=== PATIENT | male | born 1965 | race African-American/Black ===

== ENCOUNTER 2020-01-27 17:14 | Inpatient (IN) | payer MEDICAID ==
[~2020-01-27] VITALS: Ht 180.3 cm; Wt 102.9 kg
[2020-01-27 18:57] LABS: BASOPHILS # (AUTO) 0.04 x10^3/uL (0-0.1); BASOPHILS % (AUTO) 0 % (0-1); EOSINOPHILS # (AUTO) 0.11 x10^3/uL (0-0.4); EOSINOPHILS % (AUTO) 1 % (1-7); LYMPHOCYTES # (AUTO) 0.82 x10^3/uL (1-3.4); LYMPHOCYTES % (AUTO) 7 % (22-44); MD NO; MEAN CORPUSCULAR HEMOGLOBIN 29.8 pg (27.5-34.5); MEAN CORPUSCULAR HGB CONC 32.6 g/dL (33.2-36.2); MEAN CORPUSCULAR VOLUME 91.5 fL (81-97); MEAN PLATELET VOLUME 7.1 fL (7.4-10.4); MONOCYTES # (AUTO) 1.17 x10^3/uL (0.2-0.8); MONOCYTES % (AUTO) 10 % (2-9); NEUTROPHILS # (AUTO) 9.95 x10^3/uL (1.8-6.8); NEUTROPHILS % (AUTO) 82 % (42-75); PLATELET COUNT 281 x10^3/uL (130-400); RED BLOOD COUNT 4.01 x10^6/uL (4.38-5.82); RED CELL DISTRIBUTION WIDTH 15.9 % (9.4-14.8)
--- NOTE | 2020-01-27 18:59 | NUR ---
Patient brought in by EMS. Patient alert, oriented, answers questions clearly and concisely. Patient has distended abdomen. Orders placed by provider for computed tomography scan with contrast, RN to bedside, volleyball player already at bedside completing laboratory draw. RN initiated peripheral intravenous access per protocol. Awaiting imaging.
[2020-01-27] MEDS ORDERED: SODIUM CHLORIDE FLUSH 10ML SYR IVF ONE (19:00)
[2020-01-27 19:05] LABS: ALANINE AMINOTRANSFERASE 35 U/L (12-78); ALBUMIN 2.6 g/dL (3.4-5.0); ANION GAP 6 mmol/L (5-15); CALCIUM 9.1 mg/dL (8.5-10.1); CHLORIDE 96 mmol/L (98-107); CREATININE 1.11 mg/dL (0.7-1.3)
[2020-01-27 19:07] LABS: ALKALINE PHOSPHATASE 187 U/L (45-117); BILIRUBIN,TOTAL 0.7 mg/dL (0.2-1.0); TOTAL PROTEIN 8.8 g/dL (6.4-8.2)
--- NOTE | 2020-01-27 19:22 | NUR ---
Patient out of room to CT scan. Patient also reported needing to urinate to electronic service technician. RN reviewed clean catch urinalysis instructions. Will collect sample when patient returns.
[2020-01-27 20:10] LABS: MICROSCOPIC INDICATED
--- NOTE | 2020-01-27 20:19 | NUR ---
Spoke with patient's family member, informed patient, patient states he prefers to speak with family member. RN checked, patient declining to have charge entry clerk phone. Awaiting CT scan results.
[2020-01-27 20:31] LABS: CULTURE INDICATED? NO
--- NOTE | 2020-01-27 20:52 | NUR ---
Gave report to oncoming nurse, patient just had provider review diagnoses of ruptured appendicitis from provider. Also informed oncoming RN patient has concern over pain medication and provider is attempting to contact interventional radiology for drain placement.
[2020-01-27] MEDS ORDERED: SODIUM CHLORIDE 0.9% 1,000 ML IV ONE (20:53)
[2020-01-27] MEDS ORDERED: ONDANSETRON 2MG/ML, 2ML IVPush PRN (21:00)
[2020-01-27] MEDS ORDERED: SODIUM CHLORIDE FLUSH 10ML SYR IVF PRN (21:00)
[2020-01-27] MEDS ORDERED: HYDROmorphone 2 MG/ML, 1ML IVPush PRN (21:00)
[2020-01-27] MEDS ORDERED: METRONIDAZOLE PMX 500MG/100ML 100 ML IV ONE (21:00)
[2020-01-27] MEDS ORDERED: HYDROmorphone 1 MG/ML, 1ML INJ IVPush PRN (21:00)
[2020-01-27] MEDS ORDERED: CEFTRIAXONE PMX 1GM/50ML 50 ML IV ONE (21:00)
[2020-01-27] MEDS ORDERED: CEFTRIAXONE PMX 1GM/50ML 50 ML ONE (21:17)
[2020-01-27] MEDS ORDERED: HYDROmorphone 1 MG/ML, 1ML INJ ONE (21:17)
[2020-01-27] MEDS ORDERED: ONDANSETRON 2MG/ML, 2ML ONE (21:17)
[2020-01-27] MEDS ORDERED: ACETAMINOPHEN 500 MG TABLET ONE (21:20)
--- NOTE | 2020-01-27 21:20 | NUR ---
REPORT RECEIVED AND CARE ASSUMED. PT TACHY AND FEBRILE. ERP AWARE AND PLACING ORDERS. IV FLUIDS INFUSING. PT MEDICATED FOR FEVER. ROCEPHIN STARTED. CALL LIGHT IN [facility]. Addendum: 01/27/20 at 2144 by RICARDO REPORT RECEIVED AND CARE ASSUMED. PT TACHY AND FEBRILE. ERP AWARE AND PLACING ORDERS. IV FLUIDS INFUSING. PT MEDICATED FOR FEVER--PER ERP, OK TO GIVE PO TYLENOL S/T SURGERY NOT UNTIL AM. ROCEPHIN STARTED. CALL LIGHT IN [facility].
[2020-01-27] MEDS ORDERED: SODIUM CHLORIDE 0.9% 1,000ML IVBOLUS ONE (21:30)
[2020-01-27] MEDS ORDERED: ACETAMINOPHEN 500 MG TABLET PO ONE (21:30)
--- NOTE | 2020-01-27 21:35 | NUR ---
ROCEPHIN STOPPED AT THIS TIME. ERP REQUESTING BLOOD CULTURES. ANTIBIOTICS TO BE RESTARTED AFTER CULTURES DRAWN. PT AWARE OF POC.
[2020-01-27] MEDS ORDERED: GABAPENTIN PO (21:44)
[2020-01-27] MEDS ORDERED: BACL20TA PO (21:44)
[2020-01-27] MEDS ORDERED: OXYC20TA42 PO (21:44)
[2020-01-27] MEDS ORDERED: OXYC10TA6 PO (21:44)
--- NOTE | 2020-01-27 22:02 | NUR ---
BLOOD CULTURES X2 DRAWN. ANTIBIOTICS INFUSING. PT STATES HE WANTS SOMETHING MORE FOR PAIN. DISCUSSED CURRENT PAIN ORDERS AND PT AGREES. PT TO BE TRANSFERRED TO FLOOR.
[2020-01-27 22:38] VITALS: BP 138/89
[2020-01-27] MEDS ORDERED: OMNIPAQUE 350 MG/ML, 100ML BOTTLE ONE (23:15)
[2020-01-27] MEDS: MORPHINE SULFATE 4 MG/ML, 1ML IVPush PRN (23:51)
[2020-01-27] MEDS: LACTATED RINGERS 1,000 ML IV SCH (23:56)
[2020-01-28] MEDS: METRONIDAZOLE PMX 500MG/100ML 100 ML IV SCH ×3 (00:17→18:29)
[2020-01-28] MEDS: MORPHINE SULFATE 4 MG/ML, 1ML IVPush PRN ×7 (00:18→23:22)
[2020-01-28 01:00] VITALS: BP 128/82
[2020-01-28] MEDS ORDERED: BUPIVACAINE/PF-EPI 0.5% 1:200K ONE ×2 (06:50→13:10)
[2020-01-28] MEDS ORDERED: CHLORHEXIDINE 15 ML UDC ONE ×2 (06:51→14:11)
[2020-01-28] MEDS: LACTATED RINGERS 1,000 ML IV SCH ×2 (07:21→18:30)
[2020-01-28] MEDS: HEPARIN 5,000 UNITS/ML, 1ML SQ SCH ×2 (08:00→16:00)
[2020-01-28 08:15] VITALS: BP 150/88
[2020-01-28 08:52] LABS: MEAN CORPUSCULAR HEMOGLOBIN 30.2 pg (27.5-34.5); MEAN CORPUSCULAR HGB CONC 32.9 g/dL (33.2-36.2); MEAN CORPUSCULAR VOLUME 91.8 fL (81-97); MEAN PLATELET VOLUME 6.8 fL (7.4-10.4); PLATELET COUNT 305 x10^3/uL (130-400); RED BLOOD COUNT 4.01 x10^6/uL (4.38-5.82); RED CELL DISTRIBUTION WIDTH 16.1 % (9.4-14.8)
[2020-01-28] MEDS: ONDANSETRON 2MG/ML, 2ML IVPush PRN ×2 (08:52→19:27)
[2020-01-28 09:00] LABS: INTERNATIONAL NORMALIZED RATIO 0.94 (0.93-1.1)
[2020-01-28 09:02] LABS: ANION GAP 7 mmol/L (5-15); CALCIUM 8.8 mg/dL (8.5-10.1); CHLORIDE 100 mmol/L (98-107); CREATININE 0.93 mg/dL (0.7-1.3)
[2020-01-28 09:23] LABS: MD YES
[2020-01-28 09:29] LABS: BAND#(MANUAL) 0.91 x10^3/uL; BANDS%(MANUAL) 9 % (0-7); LYMPH#(MANUAL) 0.61 x10^3/uL (1-3.4); LYMPHS% (MANUAL) 6 % (22-44); MONOS#(MANUAL) 0.81 x10^3/uL (0.3-2.7); MONOS% (MANUAL) 8 % (2-9); REACTIVE LYMPHS % (MANUAL) 1 % (0-0); SEG#(MANUAL) 7.68 x10^3/uL (1.8-6.8); SEGS% (MANUAL) 76 % (42-75)
[2020-01-28 09:34] LABS: <PLATELET ESTIMATE> ADEQUATE; <PLT MORPHOLOGY> NORMAL PLT MORPH; <RBC MORPHOLOGY> NORMAL
[2020-01-28 12:41] VITALS: BP 155/82
[2020-01-28] MEDS ORDERED: MIDAZOLAM 1 MG/ML, 2ML ONE (13:25)
[2020-01-28] MEDS ORDERED: FENTANYL PF 250 MCG/5ML ONE ×2 (13:25→14:49)
[2020-01-28] MEDS ORDERED: LIDOCAINE-MPF 2% ,5ML ONE (14:21)
[2020-01-28] MEDS ORDERED: PROMETHAZINE 25 MG/ML, 1ML IV PRN (15:00)
[2020-01-28] MEDS ORDERED: PROMETHAZINE 25 MG SUPP PR PRN (15:00)
[2020-01-28] MEDS ORDERED: OXYcodone 5 MG/5 ML ORAL.SOL UDC PO PRN (15:00)
[2020-01-28] MEDS ORDERED: ONDANSETRON ODT 8 MG PO PRN (15:00)
[2020-01-28] MEDS ORDERED: ACETAMINOPHEN 325 MG TABLET PO PRN (15:00)
[2020-01-28] MEDS ORDERED: ONDANSETRON 2MG/ML, 2ML IV PRN (15:00)
[2020-01-28] MEDS ORDERED: MEPERIDINE/PF 25MG/ML,1ML IVPush PRN (15:00)
[2020-01-28] MEDS ORDERED: LORazepam 2 MG/ML, 1ML IVPush PRN (15:00)
[2020-01-28] MEDS ORDERED: FENTANYL PF 100 MCG/2ML IV PRN (15:00)
[2020-01-28] MEDS ORDERED: MEPERIDINE/PF 50 MG/ML ONE (15:29)
[2020-01-28] MEDS ORDERED: NEOSTIGMINE 1 MG/ML, 10ML ONE (15:31)
[2020-01-28] MEDS ORDERED: SUCCINYLCHOLINE 20 MG/ML, 10ML ONE (15:31)
[2020-01-28] MEDS ORDERED: GLYCOPYRROLATE 0.2MG/1ML, 5ML ONE (15:31)
[2020-01-28] MEDS ORDERED: SUGAMMADEX 200 MG/2 ML IVPush ONE ×2 (15:31)
[2020-01-28] MEDS ORDERED: CEFAZOLIN 1,000 MG ONE (15:31)
[2020-01-28] MEDS ORDERED: PROPOFOL 10 MG/ML, 20ML ONE (15:31)
[2020-01-28] MEDS ORDERED: ROCURONIUM 10MG/ML,5ML ONE (15:31)
[2020-01-28] MEDS ORDERED: DEXAMETHASONE 4 MG/ML, 1ML ONE (15:31)
[2020-01-28] MEDS ORDERED: ONDANSETRON 2MG/ML, 2ML ONE (15:31)
[2020-01-28] MEDS ORDERED: BUPIVACAINE/PF-EPI 0.5% 1:200K INFIL ONE (15:51)
[2020-01-28] MEDS ORDERED: PROMETHAZINE 25 MG/ML, 1ML ONE (16:09)
[2020-01-28] MEDS ORDERED: HYDROmorphone 2 MG/ML, 1ML ONE (16:14)
[2020-01-28] MEDS: HYDROmorphone 2 MG/ML, 1ML IVPush PRN ×2 (16:15→16:20)
[2020-01-28 19:35] VITALS: BP 154/97
[2020-01-28 23:21] VITALS: BP 132/87
[2020-01-28] MEDS: TRAZODONE 50MG TABLET PO PRN (23:23)
[2020-01-29] MEDS: TRAZODONE 50MG TABLET PO PRN ×2 (00:18→20:33)
[2020-01-29] MEDS: METRONIDAZOLE PMX 500MG/100ML 100 ML IV SCH ×3 (02:22→18:02)
[2020-01-29] MEDS: MORPHINE SULFATE 4 MG/ML, 1ML IVPush PRN (03:21)
[2020-01-29 03:25] VITALS: BP 126/81
[2020-01-29 05:26] LABS: MEAN CORPUSCULAR HEMOGLOBIN 30.2 pg (27.5-34.5); MEAN CORPUSCULAR VOLUME 91.5 fL (81-97); MEAN PLATELET VOLUME 6.8 fL (7.4-10.4); PLATELET COUNT 315 x10^3/uL (130-400); RED CELL DISTRIBUTION WIDTH 16.5 % (9.4-14.8)
[2020-01-29 05:36] LABS: ANION GAP 7 mmol/L (5-15); CALCIUM 8.2 mg/dL (8.5-10.1); CHLORIDE 100 mmol/L (98-107); CREATININE 0.93 mg/dL (0.7-1.3)
[2020-01-29] MEDS: LACTATED RINGERS 1,000 ML IV SCH ×2 (05:39→18:03)
[2020-01-29 05:41] LABS: MD YES
[2020-01-29 05:46] LABS: <PLATELET ESTIMATE> ADEQUATE; <PLT MORPHOLOGY> NORMAL PLT MORPH; <RBC MORPHOLOGY> NORMAL; BAND#(MANUAL) 3.69 x10^3/uL; BANDS%(MANUAL) 31 % (0-7); LYMPH#(MANUAL) 1.07 x10^3/uL (1-3.4); LYMPHS% (MANUAL) 9 % (22-44); MONOS#(MANUAL) 0.12 x10^3/uL (0.3-2.7); MONOS% (MANUAL) 1 % (2-9); SEG#(MANUAL) 7.02 x10^3/uL (1.8-6.8); SEGS% (MANUAL) 59 % (42-75); TOXIC GRAN 1+
[2020-01-29] MEDS: HEPARIN 5,000 UNITS/ML, 1ML SQ SCH ×3 (07:58→16:23)
[2020-01-29] MEDS: CEFTRIAXONE PMX 2GM/50ML 50 ML IV SCH (07:59)
[2020-01-29 08:26] VITALS: BP 125/83
[2020-01-29] MEDS: OXYcodone IR 5MG TABLET PO PRN ×3 (10:37→20:34)
[2020-01-29 13:31] VITALS: BP 137/89
[2020-01-29 19:27] VITALS: BP 141/91
[2020-01-30] MEDS: OXYcodone IR 5MG TABLET PO PRN ×6 (00:27→21:45)
[2020-01-30] MEDS: HEPARIN 5,000 UNITS/ML, 1ML SQ SCH ×3 (00:29→17:36)
[2020-01-30 00:36] VITALS: BP 148/89
[2020-01-30] MEDS: METRONIDAZOLE PMX 500MG/100ML 100 ML IV SCH ×3 (02:07→18:34)
[2020-01-30 04:49] LABS: MEAN CORPUSCULAR HEMOGLOBIN 29.7 pg (27.5-34.5); MEAN CORPUSCULAR HGB CONC 33.1 g/dL (33.2-36.2); PLATELET COUNT 320 x10^3/uL (130-400); RED BLOOD COUNT 3.76 x10^6/uL (4.38-5.82); RED CELL DISTRIBUTION WIDTH 16.3 % (9.4-14.8)
[2020-01-30 05:42] LABS: MD YES
[2020-01-30 05:43] LABS: <RBC MORPHOLOGY> NORMAL; BAND#(MANUAL) 1.03 x10^3/uL; BANDS%(MANUAL) 6 % (0-7); LYMPH#(MANUAL) 1.88 x10^3/uL (1-3.4); LYMPHS% (MANUAL) 11 % (22-44); METAMYELOCYTES# (MANUAL) 0.17 x10^3/uL (0-0); METAMYELOCYTES% (MANUAL) 1 % (0-1); MONOS#(MANUAL) 0.51 x10^3/uL (0.3-2.7); MONOS% (MANUAL) 3 % (2-9); SEG#(MANUAL) 13.51 x10^3/uL (1.8-6.8); SEGS% (MANUAL) 79 % (42-75)
[2020-01-30 05:44] LABS: <PLATELET ESTIMATE> ADEQUATE; <PLT MORPHOLOGY> NORMAL PLT MORPH
[2020-01-30 06:16] VITALS: BP 130/86
[2020-01-30] MEDS: CEFTRIAXONE PMX 2GM/50ML 50 ML IV SCH (08:27)
[2020-01-30] MEDS: CARVEDILOL 3.125 MG TABLET PO SCH ×2 (08:28→17:49)
[2020-01-30] MEDS ORDERED: ACETAMINOPHEN 325 MG TABLET PO PRN (08:30)
[2020-01-30 17:41] VITALS: BP 139/91
[2020-01-30 20:11] VITALS: BP 136/88
[2020-01-30] MEDS: TRAZODONE 50MG TABLET PO PRN (23:21)
[2020-01-30] MEDS ORDERED: LACTATED RINGERS 1,000 ML IV SCH (23:30)
[2020-01-30] MEDS: LACTATED RINGERS 1,000 ML IV SCH (23:30)
[2020-01-31 00:47] VITALS: BP 134/93
[2020-01-31] MEDS: METRONIDAZOLE PMX 500MG/100ML 100 ML IV SCH ×3 (02:12→18:02)
[2020-01-31] MEDS: HEPARIN 5,000 UNITS/ML, 1ML SQ SCH ×3 (02:12→18:05)
[2020-01-31] MEDS: CARVEDILOL 3.125 MG TABLET PO SCH ×2 (05:16→18:02)
[2020-01-31] MEDS: OXYcodone IR 5MG TABLET PO PRN ×4 (05:16→18:03)
[2020-01-31 05:25] LABS: MEAN CORPUSCULAR HEMOGLOBIN 29.8 pg (27.5-34.5); MEAN CORPUSCULAR VOLUME 90.1 fL (81-97); MEAN PLATELET VOLUME 6.6 fL (7.4-10.4); PLATELET COUNT 373 x10^3/uL (130-400); RED BLOOD COUNT 3.71 x10^6/uL (4.38-5.82); RED CELL DISTRIBUTION WIDTH 16.4 % (9.4-14.8)
[2020-01-31 05:33] LABS: % IRON SATURATION 6 % (20-55); ANION GAP 5 mmol/L (5-15); CALCIUM 7.9 mg/dL (8.5-10.1); CHLORIDE 101 mmol/L (98-107); CREATININE 0.67 mg/dL (0.7-1.3); IRON LEVEL 13 mcg/dL (65-175); TOTAL IRON BINDING CAPACITY 215 mcg/dL (250-450)
[2020-01-31 05:49] LABS: MD YES
[2020-01-31 05:50] LABS: <PLATELET ESTIMATE> ADEQUATE; <PLT MORPHOLOGY> NORMAL PLT MORPH; <RBC MORPHOLOGY> NORMAL; BAND#(MANUAL) 0.48 x10^3/uL; BANDS%(MANUAL) 2 % (0-7); LYMPHS% (MANUAL) 12 % (22-44); MONOS#(MANUAL) 0.73 x10^3/uL (0.3-2.7); MONOS% (MANUAL) 3 % (2-9); SEG#(MANUAL) 20.09 x10^3/uL (1.8-6.8); SEGS% (MANUAL) 83 % (42-75)
[2020-01-31 07:12] VITALS: BP 134/94
[2020-01-31] MEDS ORDERED: POTASSIUM CHLORIDE 20 MEQ TAB.ER.PRT PO ONE (08:00)
[2020-01-31] MEDS: CEFTRIAXONE PMX 2GM/50ML 50 ML IV SCH (08:05)
[2020-01-31 10:06] LABS: HCT (SEDRATE) 33.5 % (39.2-51.8)
[2020-01-31] MEDS: MICAFUNGIN 100 MG in SODIUM CHLORIDE 0.9% 100 ML IV SCH (11:23)
[2020-01-31 15:20] VITALS: BP 133/89
[2020-01-31 19:56] VITALS: BP 142/92
[2020-01-31] MEDS ORDERED: MORPHINE SULFATE 4 MG/ML, 1ML IV ONE (21:30)
[2020-01-31] MEDS: TRAZODONE 50MG TABLET PO PRN (22:02)
[2020-01-31] MEDS: LACTATED RINGERS 1,000 ML IV SCH (23:30)
[2020-02-01] MEDS: METRONIDAZOLE PMX 500MG/100ML 100 ML IV SCH ×3 (02:00→17:53)
[2020-02-01] MEDS: HEPARIN 5,000 UNITS/ML, 1ML SQ SCH ×3 (02:00→17:53)
[2020-02-01] MEDS: OXYcodone IR 5MG TABLET PO PRN ×6 (02:03→22:14)
[2020-02-01 02:44] VITALS: BP 138/88
[2020-02-01 05:13] LABS: MEAN CORPUSCULAR HEMOGLOBIN 29.9 pg (27.5-34.5); MEAN CORPUSCULAR HGB CONC 33.3 g/dL (33.2-36.2); MEAN CORPUSCULAR VOLUME 89.7 fL (81-97); MEAN PLATELET VOLUME 6.2 fL (7.4-10.4); PLATELET COUNT 399 x10^3/uL (130-400); RED BLOOD COUNT 3.66 x10^6/uL (4.38-5.82); RED CELL DISTRIBUTION WIDTH 16.2 % (9.4-14.8)
[2020-02-01 05:17] LABS: ANION GAP 7 mmol/L (5-15); CHLORIDE 101 mmol/L (98-107); CREATININE 0.71 mg/dL (0.7-1.3)
[2020-02-01] MEDS: CARVEDILOL 3.125 MG TABLET PO SCH (06:09)
[2020-02-01 06:27] LABS: MD YES
[2020-02-01 06:29] VITALS: BP 145/95
[2020-02-01 06:30] LABS: BAND#(MANUAL) 0.23 x10^3/uL; BANDS%(MANUAL) 1 % (0-7); EOS#(MANUAL) 0.91 x10^3/uL (0.0-0.4); EOS% (MANUAL) 4 % (1-7); LYMPH#(MANUAL) 1.82 x10^3/uL (1-3.4); LYMPHS% (MANUAL) 8 % (22-44); MONOS#(MANUAL) 0.91 x10^3/uL (0.3-2.7); MONOS% (MANUAL) 4 % (2-9); MYELOCYTES# (MANUAL) 0.23 x10^3/uL (0-0); MYELOCYTES% (MANUAL) 1 % (0-0); SEGS% (MANUAL) 82 % (42-75)
[2020-02-01 06:31] LABS: <PLATELET ESTIMATE> ADEQUATE; <PLT MORPHOLOGY> NORMAL PLT MORPH; <RBC MORPHOLOGY> NORMAL
[2020-02-01] MEDS: POTASSIUM CHLORIDE 20 MEQ TAB.ER.PRT PO SCH ×2 (08:26→22:09)
[2020-02-01] MEDS: CEFTRIAXONE PMX 2GM/50ML 50 ML IV SCH (08:27)
[2020-02-01] MEDS ORDERED: SODIUM CHLORIDE NASAL SPRAY 45ML BOTTLE NAS PRN (11:00)
[2020-02-01 12:32] VITALS: BP 147/94
[2020-02-01] MEDS: MICAFUNGIN 100 MG in SODIUM CHLORIDE 0.9% 100 ML IV SCH (13:08)
[2020-02-01] MEDS: SODIUM CHLORIDE 0.9% 1,000 ML IV SCH (13:08)
[2020-02-01] MEDS: CARVEDILOL 6.25 MG TABLET PO SCH (17:53)
[2020-02-01 20:31] VITALS: BP 132/87
[2020-02-01] MEDS: TRAZODONE 50MG TABLET PO PRN (22:15)
[2020-02-02] MEDS: METRONIDAZOLE PMX 500MG/100ML 100 ML IV SCH ×3 (02:06→18:11)
[2020-02-02] MEDS: OXYcodone IR 5MG TABLET PO PRN ×4 (02:20→18:07)
[2020-02-02] MEDS: HEPARIN 5,000 UNITS/ML, 1ML SQ SCH ×3 (02:20→18:06)
[2020-02-02 02:22] VITALS: BP 157/85
[2020-02-02] MEDS: SODIUM CHLORIDE 0.9% 1,000 ML IV SCH (04:05)
[2020-02-02 05:44] LABS: MEAN CORPUSCULAR HEMOGLOBIN 29.7 pg (27.5-34.5); MEAN CORPUSCULAR VOLUME 89.9 fL (81-97); MEAN PLATELET VOLUME 6.4 fL (7.4-10.4); PLATELET COUNT 441 x10^3/uL (130-400); RED BLOOD COUNT 3.48 x10^6/uL (4.38-5.82); RED CELL DISTRIBUTION WIDTH 16.7 % (9.4-14.8)
[2020-02-02 05:54] LABS: CALCIUM 7.7 mg/dL (8.5-10.1); CHLORIDE 102 mmol/L (98-107)
[2020-02-02 05:57] LABS: ANION GAP 7 mmol/L (5-15); CREATININE 0.68 mg/dL (0.7-1.3)
[2020-02-02 06:22] LABS: MD YES
[2020-02-02 06:24] LABS: EOS#(MANUAL) 0.42 x10^3/uL (0.0-0.4); EOS% (MANUAL) 2 % (1-7); LYMPH#(MANUAL) 0.85 x10^3/uL (1-3.4); LYMPHS% (MANUAL) 4 % (22-44); MONOS#(MANUAL) 0.42 x10^3/uL (0.3-2.7); MONOS% (MANUAL) 2 % (2-9); SEGS% (MANUAL) 92 % (42-75)
[2020-02-02 06:25] VITALS: BP 148/87
[2020-02-02 06:25] LABS: <RBC MORPHOLOGY> NORMAL
[2020-02-02 06:26] LABS: <PLATELET ESTIMATE> INCREASED; <PLT MORPHOLOGY> NORMAL PLT MORPH
[2020-02-02] MEDS: CARVEDILOL 6.25 MG TABLET PO SCH ×2 (06:28→18:06)
[2020-02-02] MEDS: CEFTRIAXONE PMX 2GM/50ML 50 ML IV SCH (08:16)
[2020-02-02] MEDS ORDERED: POTASSIUM CHLORIDE 20 MEQ TAB.ER.PRT PO SCH (09:00)
[2020-02-02] MEDS ORDERED: SODIUM CHLORIDE 0.9% 1,000 ML IV SCH (11:00)
[2020-02-02] MEDS ORDERED: OMNIPAQUE 350 MG/ML, 100ML BOTTLE ONE (11:42)
[2020-02-02] MEDS: MICAFUNGIN 100 MG in SODIUM CHLORIDE 0.9% 100 ML IV SCH (12:59)
[2020-02-02 14:29] VITALS: BP 160/94
[2020-02-02 20:08] VITALS: BP 149/86
== END 2020-02-02 21:00 | disposition left against medical advice (07) | DRG 710 ==
LOC: ED 17:44 → EDIP 20:53 → 3N 22:22 → 4NE 01-28 16:43
PROVIDERS: ADMIT Surgery Vascular Surgery; ATTEND Surgery Vascular Surgery
PROC: 0W9G4ZZ Drainage of Peritoneal Cavity, Percutaneous Endoscopic Approach (ICD-10-PCS; 2020-01-28)
PROC: 0DTJ4ZZ Resection of Appendix, Percutaneous Endoscopic Approach (ICD-10-PCS; principal; 2020-01-28 14:00)
DX: A41.9 Sepsis, unspecified organism (principal); K56.600 Partial intestinal obstruction, unspecified as to cause; K35.33 Acute appendicitis with perforation, localized peritonitis, and gangrene, with abscess; E87.1 Hypo-osmolality and hyponatremia; K56.7 Ileus, unspecified; D50.9 Iron deficiency anemia, unspecified; E87.6 Hypokalemia; F10.10 Alcohol abuse, uncomplicated; F17.210 Nicotine dependence, cigarettes, uncomplicated; I10 Essential (primary) hypertension; J98.11 Atelectasis; Z96.643 Presence of artificial hip joint, bilateral; Y90.9 Presence of alcohol in blood, level not specified
CPT/HCPCS: 36415; 74177; 80048; 80053; 81001; 83540; 83550; 83605; 83690; 83735; 85025; 85610; 85651; 86140; 87015; 87040; 87070; 87075; 87077; 87102; 87116; 87186; 87205; 87206; 88304; 96374; 96375; G0378; J0690; J0696; J1100; J1170; J1644; J2175; J2248; J2250; J2405; J2550; J2704; J2710; J3010; Q9967; J0330; J2270; J7030; J7120